=== PATIENT | female | born 1930 | race Caucasian/White ===

== ENCOUNTER 2016-04-22 13:37 | Inpatient (IN) | payer OTHER ==
[~2016-04-22] VITALS: Ht 160 cm; Wt 49.5 kg
[~2016-04-22 13:37] MED LIST: ACETAZOLAMIDE500 MG PO; ADVIL,NUPRIN,M200 MG PO; ALPHAGAN P100 DROP/2; ALPHAGAN P100 DROP/2 RIGHT EYE; ALPRAZOLAM0.25 M2 PO; ASPIR 8181 M1 PO; ASPIRIN81 M2 PO; BISACODYL5 MG PO; BROMDAY1.7 ML OP; CEPHALEXIN500 MG PO; CIPRO250 MG PO; CIPRO500 MG PO; COMPAZINE25 M1 PR; COSOPT 0.5200 DROP/1 RIGHT EYE; Colace PO; DICYCLOMINE HCL10 MG PO; DOCUSATE SODIU100 MG PO; DORZOLAMIDE-TIM10 ML; DUREZOL 0.100 DROP/5; DYAZIDE, MA1 CAPSULE PO; Durezol 0.05% Ophtha RIGHT EYE; LOVENOX40 MG/0.4 SC; MELATONIN1 MG PO; METOCLOPRAMIDE10 MG PO; METOPROLOL SUCC50 MG PO; MILK OF MAGNESI10 ML PO; ONDANSETRON ODT4 MG PO; PERCOCET 5/31 TABLET PO; POLYETHYLENE GL17 GM PO; PRILOSEC20 MG PO; THERAGRAN1 TABLET PO; TRAMADOL HCL50 MG PO; Tylenol Regular Stre PO; VIGAMOX 0.60 DROP/3 RIGHT EYE; VITAMIN B12 100MCG PO; VITAMIN D1000 UNIT PO; Vicodin,Lortab 5/500 PO; Vigamox 0.5% Ophth S RIGHT EYE; XALATAN 0.50 DROP/2. OP; Xalatan 0.005% Ophth RIGHT EYE
[2016-04-22 14:05] LABS: HEMATOCRIT 38.3 % (36.0-46.0); MCH 30.6 PG (29.0-34.0); MCHC 34.5 G/DL (30.0-36.0); MCV 88.9 FL (83-99); MEAN PLAT.VOLUME 10.6 uM^3 (9.5-12.4); PLATELET COUNT 202 K/uL (156-360); RBC DIS.WIDTH-CV 13.2 % (11.8-14.6); RBC DIS.WIDTH-SD 41.9 % (39-53); RED BLOOD COUNT 4.31 M/uL (3.80-5.20); WHITE BLOOD COUNT 11.7 K/uL (4.1-10.2)
[2016-04-22 14:14] LABS: CHLORIDE 102 mEq/L (99-109); POTASSIUM 3.9 mEq/L (3.7-5.4); SODIUM 137 mEq/L (136-147)
[2016-04-22 14:15] LABS: GLUCOSE 124 mg/dL (70-99)
[2016-04-22 14:17] LABS: ANION GAP 9 MEQ/L (2-14)
[2016-04-22 14:19] LABS: GFR ESTIMATE (CALCULATED) > 59 mL/min/
[2016-04-22 14:20] LABS: UREA NITROGEN (BUN) 24 mg/dL (9-23)
[2016-04-22 14:26] LABS: TROP-I INTERPRETATION NEGATIVE; TROPONIN-I < 0.01 ng/mL (0.0-0.30)
[2016-04-22] MEDS ORDERED: METOPROLOL SUC100 MG PO (15:28)
[2016-04-22 18:19] VITALS: BP 110/57
[2016-04-22 20:55] LABS: TROP-I INTERPRETATION NEGATIVE; TROPONIN-I < 0.01 ng/mL (0.0-0.30)
[2016-04-22 21:38] LABS: ADD MIUA? YES; BILIRUBIN NEGATIVE; BLOOD NEGATIVE; GLUCOSE (STRIP) NEGATIVE; KETONES NEGATIVE; LEUKOCYTES LARGE; NITRITE NEGATIVE; PH, URINE 8.5 (5-8); PROTEIN (STRIP) 100; SPECIFIC GRAVITY 1.018 (1.000-1.030); UROBILINOGEN 0.2 MG/DL (0.2-1.0)
[2016-04-22 21:39] LABS: COLOR DK YELLOW ((YELLOW))
[2016-04-22 21:58] LABS: EPITHELIAL CELLS NONE SEEN /HPF; MUCUS NONE SEEN /LPF; RED BLOOD CELLS 0-5 /HPF (0-5); WHITE BLOOD CELLS 40-50 /HPF (0-5)
[2016-04-22 21:59] LABS: AMORPHOUS PHOSPHATE CRYSTALS 2+; BACTERIA 3+ /HPF; CASTS NONE SEEN /LPF; CRYSTALS PRESENT; UCUL ADDED? YES
[2016-04-22 23:02] LABS: EOSINOPHIL (%) 0.1 % (0-5); HEMATOCRIT 34.5 % (36.0-46.0); IMMATURE GRANULOCYTE (%) 1.2 % (0.0-0.7); LYMPHOCYTE COUNT 2.5 K/uL (1.0-2.8); MCH 31.1 PG (29.0-34.0); MCHC 35.1 G/DL (30.0-36.0); MCV 88.7 FL (83-99); MEAN PLAT.VOLUME 10.9 uM^3 (9.5-12.4); MONOCYTE (%) 9.9 % (3-12); MONOCYTE COUNT 1.6 K/uL (0-0.8); NEUTROPHIL (%) 73.4 % (45-76); NEUTROPHIL COUNT 12.1 K/uL (1.8-6.4); PLATELET COUNT 192 K/uL (156-360); RBC DIS.WIDTH-CV 13.4 % (11.8-14.6); RBC DIS.WIDTH-SD 42.1 % (39-53); RED BLOOD COUNT 3.89 M/uL (3.80-5.20); WHITE BLOOD COUNT 16.5 K/uL (4.1-10.2)
[2016-04-23 02:00] VITALS: BP 137/55
[2016-04-23 03:02] LABS: TROP-I INTERPRETATION NEGATIVE; TROPONIN-I < 0.01 ng/mL (0.0-0.30)
[2016-04-23 05:00] VITALS: BP 123/60
[2016-04-23 06:21] LABS: HEMATOCRIT 31.6 % (36.0-46.0); MCH 30.9 PG (29.0-34.0); MCHC 34.5 G/DL (30.0-36.0); MCV 89.5 FL (83-99); MEAN PLAT.VOLUME 11.4 uM^3 (9.5-12.4); PLATELET COUNT 170 K/uL (156-360); RBC DIS.WIDTH-CV 13.7 % (11.8-14.6); RBC DIS.WIDTH-SD 45.1 % (39-53); RED BLOOD COUNT 3.53 M/uL (3.80-5.20); WHITE BLOOD COUNT 13.5 K/uL (4.1-10.2)
[2016-04-23 06:50] LABS: ANION GAP 9 MEQ/L (2-14); CHLORIDE 102 MEQ/L (99-109); GFR ESTIMATE (CALCULATED) > 59 mL/min/; GLUCOSE 112 mg/dL (70-99); POTASSIUM 3.8 MEQ/L (3.7-5.4); SAMPLE HEMOLYSIS CHECK 0; SAMPLE ICTERIC CHECK 0; SAMPLE LIPEMIA CHECK 0; SODIUM 135 MEQ/L (136-147); UREA NITROGEN (BUN) 29 mg/dL (9-23)
[2016-04-23 08:00] VITALS: BP 116/55
[2016-04-23 16:00] VITALS: BP 131/61
[2016-04-23 20:48] VITALS: BP 115/56
[2016-04-24] VITALS (30 sets, daily range): BP systolic 86–190; BP diastolic 46–96
[2016-04-24 02:33] LABS: INTER. NORMALIZED RATIO 1.2; PROTHROMBIN TIME 12.3 (9.2-11.2); PTT 37.1 (25-32)
[2016-04-24 02:41] LABS: TROP-I INTERPRETATION NEGATIVE; TROPONIN-I < 0.01 ng/mL (0.0-0.30)
[2016-04-24 09:45] LABS: EOSINOPHIL (%) 0.1 % (0-5); HEMATOCRIT 30.5 % (36.0-46.0); IMMATURE GRANULOCYTE (%) 0.4 % (0.0-0.7); LYMPHOCYTE COUNT 1.9 K/uL (1.0-2.8); MCH 30.1 PG (29.0-34.0); MCHC 33.4 G/DL (30.0-36.0); MEAN PLAT.VOLUME 11.6 uM^3 (9.5-12.4); MONOCYTE (%) 11.9 % (3-12); MONOCYTE COUNT 1.3 K/uL (0-0.8); NEUTROPHIL (%) 69.2 % (45-76); NEUTROPHIL COUNT 7.3 K/uL (1.8-6.4); PLATELET COUNT 164 K/uL (156-360); RBC DIS.WIDTH-CV 14.2 % (11.8-14.6); RBC DIS.WIDTH-SD 46.6 % (39-53); RED BLOOD COUNT 3.39 M/uL (3.80-5.20); WHITE BLOOD COUNT 10.5 K/uL (4.1-10.2)
[2016-04-24 10:01] LABS: TROP-I INTERPRETATION POSITIVE
[2016-04-24 10:02] LABS: TROPONIN-I 0.71 ng/mL (0.0-0.30)
[2016-04-24 10:11] LABS: ANION GAP 9 MEQ/L (2-14); CHLORIDE 104 MEQ/L (99-109); SAMPLE HEMOLYSIS CHECK 0; SAMPLE ICTERIC CHECK 0; SAMPLE LIPEMIA CHECK 0; SODIUM 134 MEQ/L (136-147)
[2016-04-24 10:16] LABS: GFR ESTIMATE (CALCULATED) > 59 mL/min/; GLUCOSE 107 mg/dL (70-99); UREA NITROGEN (BUN) 34 mg/dL (9-23)
[2016-04-24 13:07] LABS: METH RESISTANT S AUREUS PCR POSITIVE (NEGATIVE)
[2016-04-24 13:11] LABS: PROBE CHECK PASS
[2016-04-24 13:56] LABS: TROP-I INTERPRETATION POSITIVE
[2016-04-24 14:02] LABS: TROPONIN-I 1.01 ng/mL (0.0-0.30)
[2016-04-24 14:04] LABS: DIGOXIN 1.8 ng/mL (0.8-2.0)
[2016-04-24 20:58] LABS: BASE EXCESS -1.3 mEq/L (-3 to +3); BICARBONATE 22.2 mEq/L (22-26); METHEMOGLOBIN 0.8 % (0-1.5); PCO2 32 mm Hg (35-45); PO2 78 mm Hg (80-100); SITE LR; pH 7.45 (7.35-7.45)
[2016-04-24 20:59] LABS: COMMENTS - BLOOD GASES C+A+; DEVICE NC; O2 FLOW 2 L/MIN
[2016-04-24 21:25] LABS: HEMATOCRIT 30.6 % (36.0-46.0); MCH 30.3 PG (29.0-34.0); MCHC 33.3 G/DL (30.0-36.0); MCV 90.8 FL (83-99); MEAN PLAT.VOLUME 11.6 uM^3 (9.5-12.4); PLATELET COUNT 149 K/uL (156-360); RBC DIS.WIDTH-CV 14.1 % (11.8-14.6); RBC DIS.WIDTH-SD 46.7 % (39-53); RED BLOOD COUNT 3.37 M/uL (3.80-5.20); WHITE BLOOD COUNT 9.5 K/uL (4.1-10.2)
[2016-04-24 21:37] LABS: INTER. NORMALIZED RATIO 1.2; PROTHROMBIN TIME 11.9 (9.2-11.2)
[2016-04-24 21:40] LABS: PTT 31.8 (25-32)
[2016-04-24 21:42] LABS: ANION GAP 12 MEQ/L (2-14); CHLORIDE 104 MEQ/L (99-109); MAGNESIUM 2.1 mg/dl (1.3-2.7); SAMPLE HEMOLYSIS CHECK 0; SAMPLE ICTERIC CHECK 0; SAMPLE LIPEMIA CHECK 0; SODIUM 136 MEQ/L (136-147); TOTAL BILIRUBIN 0.7 MG/DL (0.0-1.0)
[2016-04-24 21:48] LABS: ALKALINE PHOSPHATASE 90 IU/L (3-129); GFR ESTIMATE (CALCULATED) > 59 mL/min/; GLUCOSE 100 mg/dL (70-99); UREA NITROGEN (BUN) 31 mg/dL (9-23)
[2016-04-25] VITALS (22 sets, daily range): BP systolic 111–169; BP diastolic 53–93
[2016-04-25 05:33] LABS: HEMATOCRIT 29.8 % (36.0-46.0); MCH 30.4 PG (29.0-34.0); MCHC 33.6 G/DL (30.0-36.0); MCV 90.6 FL (83-99); MEAN PLAT.VOLUME 11.5 uM^3 (9.5-12.4); PLATELET COUNT 156 K/uL (156-360); RBC DIS.WIDTH-CV 13.9 % (11.8-14.6); RBC DIS.WIDTH-SD 46.3 % (39-53); RED BLOOD COUNT 3.29 M/uL (3.80-5.20)
[2016-04-25 06:08] LABS: ANION GAP 7 MEQ/L (2-14); CHLORIDE 106 MEQ/L (99-109); GFR ESTIMATE (CALCULATED) > 59 mL/min/; GLUCOSE 91 mg/dL (70-99); POTASSIUM 3.7 MEQ/L (3.7-5.4); SAMPLE HEMOLYSIS CHECK 0; SAMPLE ICTERIC CHECK 0; SAMPLE LIPEMIA CHECK 0; SODIUM 136 MEQ/L (136-147); UREA NITROGEN (BUN) 27 mg/dL (9-23)
[2016-04-26] VITALS (24 sets, daily range): BP systolic 100–154; BP diastolic 51–102
[2016-04-26 05:42] LABS: HEMATOCRIT 27.9 % (36.0-46.0); MCH 30.5 PG (29.0-34.0); MCHC 33.7 G/DL (30.0-36.0); MCV 90.6 FL (83-99); PLATELET COUNT 173 K/uL (156-360); RBC DIS.WIDTH-CV 13.5 % (11.8-14.6); RBC DIS.WIDTH-SD 43.9 % (39-53); RED BLOOD COUNT 3.08 M/uL (3.80-5.20); WHITE BLOOD COUNT 7.4 K/uL (4.1-10.2)
[2016-04-27] VITALS (19 sets, daily range): BP systolic 120–159; BP diastolic 57–81
[2016-04-27 06:04] LABS: TROP-I INTERPRETATION POSITIVE
[2016-04-27 06:09] LABS: TROPONIN-I 0.68 ng/mL (0.0-0.30)
[2016-04-28] VITALS (13 sets, daily range): BP systolic 119–184; BP diastolic 62–86
[2016-04-28 05:57] LABS: HEMATOCRIT 25.4 % (36.0-46.0); MCH 30.1 PG (29.0-34.0); MCHC 33.5 G/DL (30.0-36.0); MCV 90.1 FL (83-99); MEAN PLAT.VOLUME 10.8 uM^3 (9.5-12.4); PLATELET COUNT 193 K/uL (156-360); RBC DIS.WIDTH-CV 14.1 % (11.8-14.6); RBC DIS.WIDTH-SD 46.5 % (39-53); RED BLOOD COUNT 2.82 M/uL (3.80-5.20)
[2016-04-29 03:20] VITALS: BP 136/69
[2016-04-29 07:18] LABS: EOSINOPHIL (%) 4.2 % (0-5); EOSINOPHIL COUNT 0.3 K/uL (0-0.3); HEMATOCRIT 24.5 % (36.0-46.0); IMMATURE GRANULOCYTE (%) 0.1 % (0.0-0.7); LYMPHOCYTE COUNT 1.3 K/uL (1.0-2.8); MCH 31.6 PG (29.0-34.0); MCHC 34.7 G/DL (30.0-36.0); MCV 91.1 FL (83-99); MONOCYTE (%) 9.4 % (3-12); MONOCYTE COUNT 0.7 K/uL (0-0.8); NEUTROPHIL (%) 67.9 % (45-76); PLATELET COUNT 214 K/uL (156-360); RBC DIS.WIDTH-CV 14.5 % (11.8-14.6); RED BLOOD COUNT 2.69 M/uL (3.80-5.20); WHITE BLOOD COUNT 7.3 K/uL (4.1-10.2)
[2016-04-29 07:52] LABS: ANION GAP 10 MEQ/L (2-14); CHLORIDE 115 MEQ/L (99-109); GFR ESTIMATE (CALCULATED) > 59 mL/min/; GLUCOSE 96 mg/dL (70-99); POTASSIUM 3.4 MEQ/L (3.7-5.4); SAMPLE HEMOLYSIS CHECK 0; SAMPLE ICTERIC CHECK 0; SAMPLE LIPEMIA CHECK 0; UREA NITROGEN (BUN) 27 mg/dL (9-23)
[2016-04-29 07:59] LABS: SODIUM 147 MEQ/L (136-147)
[2016-04-29 09:40] VITALS: BP 153/71
[2016-04-29 12:45] VITALS: BP 142/78
[2016-04-29 17:30] VITALS: BP 138/70
[2016-04-29 19:30] VITALS: BP 154/84
[2016-04-29 23:30] VITALS: BP 178/84
[2016-04-30 01:07] VITALS: BP 146/75
[2016-04-30 03:15] VITALS: BP 140/77
[2016-04-30 06:13] LABS: EOSINOPHIL (%) 4.3 % (0-5); EOSINOPHIL COUNT 0.3 K/uL (0-0.3); HEMATOCRIT 25.4 % (36.0-46.0); IMMATURE GRANULOCYTE (%) 0.1 % (0.0-0.7); LYMPHOCYTE COUNT 1.5 K/uL (1.0-2.8); MCH 30.9 PG (29.0-34.0); MCHC 34.3 G/DL (30.0-36.0); MCV 90.1 FL (83-99); MEAN PLAT.VOLUME 10.5 uM^3 (9.5-12.4); MONOCYTE (%) 8.3 % (3-12); MONOCYTE COUNT 0.6 K/uL (0-0.8); NEUTROPHIL (%) 66.7 % (45-76); NEUTROPHIL COUNT 4.8 K/uL (1.8-6.4); PLATELET COUNT 250 K/uL (156-360); RBC DIS.WIDTH-CV 14.3 % (11.8-14.6); RBC DIS.WIDTH-SD 47.2 % (39-53); RED BLOOD COUNT 2.82 M/uL (3.80-5.20); WHITE BLOOD COUNT 7.2 K/uL (4.1-10.2)
[2016-04-30 06:44] LABS: ANION GAP 8 MEQ/L (2-14); CHLORIDE 115 MEQ/L (99-109); GFR ESTIMATE (CALCULATED) > 59 mL/min/; GLUCOSE 101 mg/dL (70-99); POTASSIUM 3.4 MEQ/L (3.7-5.4); SAMPLE HEMOLYSIS CHECK 0; SAMPLE ICTERIC CHECK 0; SAMPLE LIPEMIA CHECK 0; SODIUM 145 MEQ/L (136-147); TOTAL BILIRUBIN 0.7 MG/DL (0.0-1.0); UREA NITROGEN (BUN) 28 mg/dL (9-23)
[2016-04-30 06:47] LABS: ALKALINE PHOSPHATASE 136 IU/L (3-129)
[2016-04-30 08:20] VITALS: BP 138/76
[2016-04-30 15:25] VITALS: BP 153/78
[2016-04-30 16:28] LABS: INTER. NORMALIZED RATIO 1.3; PROTHROMBIN TIME 13.8 (9.2-11.2); PTT 31.7 (25-32)
[2016-04-30 19:26] VITALS: BP 166/96
[2016-04-30 22:16] VITALS: BP 169/79
[2016-05-01 03:42] VITALS: BP 132/83
[2016-05-01 06:33] LABS: EOSINOPHIL COUNT 0.3 K/uL (0-0.3); IMMATURE GRANULOCYTE (%) 0.4 % (0.0-0.7); LYMPHOCYTE COUNT 1.6 K/uL (1.0-2.8); MCH 30.6 PG (29.0-34.0); MCHC 33.8 G/DL (30.0-36.0); MCV 90.3 FL (83-99); MEAN PLAT.VOLUME 10.7 uM^3 (9.5-12.4); MONOCYTE (%) 10.1 % (3-12); MONOCYTE COUNT 0.7 K/uL (0-0.8); NEUTROPHIL (%) 60.2 % (45-76); NEUTROPHIL COUNT 4.1 K/uL (1.8-6.4); PLATELET COUNT 283 K/uL (156-360); RBC DIS.WIDTH-CV 14.4 % (11.8-14.6); RBC DIS.WIDTH-SD 47.7 % (39-53); RED BLOOD COUNT 2.88 M/uL (3.80-5.20); WHITE BLOOD COUNT 6.8 K/uL (4.1-10.2)
[2016-05-01 07:02] LABS: ANION GAP 10 MEQ/L (2-14); CHLORIDE 113 MEQ/L (99-109); GFR ESTIMATE (CALCULATED) > 59 mL/min/; GLUCOSE 93 mg/dL (70-99); POTASSIUM 3.8 MEQ/L (3.7-5.4); SAMPLE HEMOLYSIS CHECK 0; SAMPLE ICTERIC CHECK 0; SAMPLE LIPEMIA CHECK 0; SODIUM 147 MEQ/L (136-147); UREA NITROGEN (BUN) 29 mg/dL (9-23)
[2016-05-01 08:42] VITALS: BP 156/81
[2016-05-01 12:16] VITALS: BP 166/80
[2016-05-01 14:50] LABS: TYPE OF FLUID PLEURAL
[2016-05-01 15:06] VITALS: BP 154/79
[2016-05-01 15:57] LABS: BODY FLUID RBC'S 16 /MM^3 (0-100); RED CELL AREA COUNTED 18; RED CELL DILUTION 1; WBC AREA COUNTED 18; WBC DILUTION 1
[2016-05-01 15:58] LABS: BODY FLUID WBC'S 220 /MM^3 (0-500); WHITE CELL RAW COUNT 396
[2016-05-01 16:00] LABS: BODY FLUID EOSINOPHILS 0 % (0-25); MONO RAW COUNT 77; MONONUCLEAR WBC'S 77 %; POLY RAW COUNT 23; POLYNUCLEAR WBC'S 23 % (0-25)
[2016-05-01 16:26] LABS: BODY FLUID LDH 210 IU/L; BODY FLUID PROTEIN 2.2 G/DL
[2016-05-01 20:00] VITALS: BP 120/69
[2016-05-01 23:06] VITALS: BP 147/77
[2016-05-02 03:56] VITALS: BP 152/83
[2016-05-02 06:53] LABS: EOSINOPHIL COUNT 0.3 K/uL (0-0.3); HEMATOCRIT 25.7 % (36.0-46.0); IMMATURE GRANULOCYTE (%) 0.6 % (0.0-0.7); LYMPHOCYTE COUNT 1.6 K/uL (1.0-2.8); MCH 30.2 PG (29.0-34.0); MCHC 33.1 G/DL (30.0-36.0); MCV 91.5 FL (83-99); MEAN PLAT.VOLUME 10.9 uM^3 (9.5-12.4); MONOCYTE (%) 8.9 % (3-12); MONOCYTE COUNT 0.6 K/uL (0-0.8); NEUTROPHIL (%) 62.4 % (45-76); NEUTROPHIL COUNT 4.3 K/uL (1.8-6.4); PLATELET COUNT 274 K/uL (156-360); RBC DIS.WIDTH-CV 14.3 % (11.8-14.6); RBC DIS.WIDTH-SD 47.7 % (39-53); RED BLOOD COUNT 2.81 M/uL (3.80-5.20); WHITE BLOOD COUNT 6.8 K/uL (4.1-10.2)
[2016-05-02 07:08] LABS: ANION GAP 6 MEQ/L (2-14); CHLORIDE 112 MEQ/L (99-109); GFR ESTIMATE (CALCULATED) > 59 mL/min/; GLUCOSE 95 mg/dL (70-99); POTASSIUM 3.5 MEQ/L (3.7-5.4); SAMPLE HEMOLYSIS CHECK 0; SAMPLE ICTERIC CHECK 0; SAMPLE LIPEMIA CHECK 0; SODIUM 145 MEQ/L (136-147); UREA NITROGEN (BUN) 31 mg/dL (9-23)
[2016-05-02 09:17] VITALS: BP 129/65
[2016-05-02 11:44] VITALS: BP 145/79
[2016-05-02] MEDS ORDERED: IBUPROFEN400 MG PO (11:52)
[2016-05-02] MEDS ORDERED: ASPIR-LOW81 MG PO (11:52)
[2016-05-02] MEDS ORDERED: XARELTO15 MG PO (11:52)
[2016-05-02] MEDS ORDERED: TYLENOL REGULA325 MG PO (11:53)
[2016-05-02] MEDS ORDERED: COLCRYS0.6 MG PO (11:54)
[2016-05-02] MEDS ORDERED: OMEPRAZOLE20 MG PO (11:55)
== END 2016-05-02 12:48 | disposition home or self-care (01) | DRG 280 ==
LOC: EME 13:37 → 5WEST 15:16 → EDOF 15:16 → 5WEST 16:49 → 4WEST 04-23 10:12 → 5WEST 04-23 10:12 → 4EAST 04-24 02:09 → 4WEST 04-24 11:45 → 4EAST 04-24 11:45 → 4WEST 04-27 06:41 → 4EAST 04-28 10:00
PROVIDERS: Hospitalist; Internal Medicine; Internal Medicine Cardiovascular Disease; Internal Medicine Critical Care Medicine; Internal Medicine Pulmonary Disease; Obstetrics & Gynecology; Physician Assistant; Physician Assistant Medical; Radiology Diagnostic Radiology; Student in an Organized Health Care Education/Training Program
PROC: B2111ZZ Fluoroscopy of Multiple Coronary Arteries using Low Osmolar Contrast (ICD-10-PCS; principal; 2016-04-24)
PROC: 5A1223Z Performance of Cardiac Pacing, Continuous (ICD-10-PCS; principal; 2016-04-24)
PROC: 4A023N7 Measurement of Cardiac Sampling and Pressure, Left Heart, Percutaneous Approach (ICD-10-PCS; principal; 2016-04-24)
PROC: B2151ZZ Fluoroscopy of Left Heart using Low Osmolar Contrast (ICD-10-PCS; principal; 2016-04-24)
PROC: 0W9B3ZZ Drainage of Left Pleural Cavity, Percutaneous Approach (ICD-10-PCS; 2016-05-01)
DX: I21.3 ST elevation (STEMI) myocardial infarction of unspecified site (principal); G93.41 Metabolic encephalopathy; D68.9 Coagulation defect, unspecified; I31.3 Pericardial effusion (noninflammatory); N39.0 Urinary tract infection, site not specified; I49.5 Sick sinus syndrome; I48.91 Unspecified atrial fibrillation; R07.9 Chest pain, unspecified; D72.829 Elevated white blood cell count, unspecified; I10 Essential (primary) hypertension; R41.82 Altered mental status, unspecified; R94.31 Abnormal electrocardiogram [ECG] [EKG]; I45.5 Other specified heart block; I25.10 Atherosclerotic heart disease of native coronary artery without angina pectoris; B96.4 Proteus (mirabilis) (morganii) as the cause of diseases classified elsewhere; R25.1 Tremor, unspecified
CPT/HCPCS: 36600; 70450; 71010; 71020; 80048; 80053; 80162; 81003; 82803; 82945; 83605; 83615 91; 83735; 83880; 84100; 84157; 84439; 84443; 84484; 85025; 85027; 85347; 85610; 85730; 87040; 87070; 87077; 87086; 87186; 87205; 87641; 88108; 88305; 89051; 92610 GN; 93005; 93306; 93308; 94760; 94799; 99281; 99284; C1769; C1887; C1894; G0378; J0461; J0696; J1160; J1644; J2250; J3010; J7030; J7040; J7050; J7120

== ENCOUNTER 2016-05-08 13:45 | Inpatient (IN) | payer OTHER, MEDICARE ==
[~2016-05-08] VITALS: Ht 160 cm; Wt 66.5 kg
[~2016-05-08 13:45] MED LIST changes: +ASPIR-LOW81 MG PO; +COLCRYS0.6 MG PO; +IBUPROFEN400 MG PO; +METOPROLOL SUC100 MG PO; +OMEPRAZOLE20 MG PO; +TYLENOL REGULA325 MG PO; +XARELTO15 MG PO
[2016-05-08 14:40] LABS: INTER. NORMALIZED RATIO 1.4; PROTHROMBIN TIME 13.9 (9.2-11.2); PTT 33.6 (25-32)
[2016-05-08 14:41] LABS: HEMATOCRIT 28.2 % (36.0-46.0); MCH 29.5 PG (29.0-34.0); MCV 89.5 FL (83-99); MEAN PLAT.VOLUME 10.6 uM^3 (9.5-12.4); PLATELET COUNT 367 K/uL (156-360); RBC DIS.WIDTH-CV 14.4 % (11.8-14.6); RBC DIS.WIDTH-SD 45.7 % (39-53); RED BLOOD COUNT 3.15 M/uL (3.80-5.20)
[2016-05-08 14:42] LABS: WHITE BLOOD COUNT 14.5 K/uL (4.1-10.2)
[2016-05-08 14:58] LABS: TROP-I INTERPRETATION NEGATIVE; TROPONIN-I 0.02 ng/mL (0.0-0.30)
[2016-05-08 15:06] LABS: CHLORIDE 107 mEq/L (99-109); POTASSIUM 4.8 mEq/L (3.7-5.4); SODIUM 138 mEq/L (136-147)
[2016-05-08 15:08] LABS: GLUCOSE 119 mg/dL (70-99)
[2016-05-08 15:09] LABS: ANION GAP 11 MEQ/L (2-14)
[2016-05-08 15:10] LABS: TOTAL BILIRUBIN 0.8 mg/dL (0.0-1.0)
[2016-05-08 15:11] LABS: ALKALINE PHOSPHATASE 160 IU/L (3-129)
[2016-05-08 15:12] LABS: GFR ESTIMATE (CALCULATED) > 59 mL/min/
[2016-05-08 15:13] LABS: UREA NITROGEN (BUN) 23 mg/dL (9-23)
[2016-05-08 15:15] LABS: CREATINE KINASE 40 IU/L (1-294); TOTAL CK 40 IU/L (1-294)
[2016-05-08 15:20] LABS: CK-MB 1.1 ng/mL (0.0-4.9)
[2016-05-08 16:36] LABS: ADD MIUA? YES; BILIRUBIN NEGATIVE; BLOOD NEGATIVE; COLOR YELLOW ((YELLOW)); GLUCOSE (STRIP) NEGATIVE; KETONES NEGATIVE; LEUKOCYTES TRACE; NITRITE NEGATIVE; PROTEIN (STRIP) NEGATIVE; UROBILINOGEN 0.2 MG/DL (0.2-1.0)
[2016-05-08] MEDS ORDERED: LO-DOSE ASPIRIN81 M2 PO (16:42)
[2016-05-08] MEDS ORDERED: TRAMADOL HCL50 MG PO (16:43)
[2016-05-08] MEDS ORDERED: OMEPRAZOLE20 MG PO (16:43)
[2016-05-08] MEDS ORDERED: IBUPROFEN400 MG PO (16:43)
[2016-05-08] MEDS ORDERED: COLCRYS0.6 MG PO (16:43)
[2016-05-08] MEDS ORDERED: ONE-A-DAY ESSE1 EAC1 PO (16:44)
[2016-05-08] MEDS ORDERED: VITAMIN D31000 UNI2 PO (16:44)
[2016-05-08] MEDS ORDERED: CYANOCOBALAM1000 MCG PO (16:44)
[2016-05-08 16:46] LABS: BACTERIA NONE SEEN /HPF; EPITHELIAL CELLS RARE /HPF; HYALINE CASTS 0-5 /LPF; MUCUS TRACE /LPF; RED BLOOD CELLS 0-5 /HPF (0-5); UCUL ADDED? NO; WHITE BLOOD CELLS 0-5 /HPF (0-5)
[2016-05-08 16:52] LABS: MAGNESIUM 2.1 mg/dL (1.3-2.7)
[2016-05-08 17:32] LABS: DIGOXIN < 0.3 ng/mL (0.8-2.0)
[2016-05-08 17:43] VITALS: BP 167/77
[2016-05-08 18:30] VITALS: BP 152/65
[2016-05-08 20:00] VITALS: BP 150/79
[2016-05-08 20:04] LABS: METH RESISTANT S AUREUS PCR POSITIVE (NEGATIVE)
[2016-05-08 20:15] LABS: PROBE CHECK PASS
[2016-05-08 21:00] VITALS: BP 137/63
[2016-05-08 21:36] LABS: HEMATOCRIT 25.8 % (36.0-46.0); MCV 89.3 FL (83-99)
[2016-05-08 22:00] VITALS: BP 153/55
[2016-05-08 22:09] LABS: TROP-I INTERPRETATION NEGATIVE; TROPONIN-I 0.03 ng/mL (0.0-0.30)
[2016-05-08 23:00] VITALS: BP 148/63
[2016-05-09] VITALS (17 sets, daily range): BP systolic 87–182; BP diastolic 50–98
[2016-05-09 03:00] LABS: TROP-I INTERPRETATION NEGATIVE; TROPONIN-I 0.03 ng/mL (0.0-0.30)
[2016-05-09 06:20] LABS: ALKALINE PHOSPHATASE 132 IU/L (3-129); ANION GAP 8 MEQ/L (2-14); CHLORIDE 108 MEQ/L (99-109); GFR ESTIMATE (CALCULATED) > 59 mL/min/; GLUCOSE 91 mg/dL (70-99); POTASSIUM 3.9 MEQ/L (3.7-5.4); SAMPLE HEMOLYSIS CHECK 0; SAMPLE ICTERIC CHECK 0; SAMPLE LIPEMIA CHECK 0; SODIUM 139 MEQ/L (136-147); TOTAL BILIRUBIN 0.8 MG/DL (0.0-1.0); UREA NITROGEN (BUN) 20 mg/dL (9-23)
[2016-05-09 06:42] LABS: HEMATOCRIT 22.5 % (36.0-46.0); MCH 29.5 PG (29.0-34.0); MCHC 33.3 G/DL (30.0-36.0); MCV 88.6 FL (83-99); MEAN PLAT.VOLUME 10.8 uM^3 (9.5-12.4); PLATELET COUNT 300 K/uL (156-360); RBC DIS.WIDTH-CV 14.6 % (11.8-14.6); RBC DIS.WIDTH-SD 47.3 % (39-53); RED BLOOD COUNT 2.54 M/uL (3.80-5.20)
[2016-05-09 06:46] LABS: WHITE BLOOD COUNT 7.9 K/uL (4.1-10.2)
[2016-05-10] VITALS (10 sets, daily range): BP systolic 107–155; BP diastolic 51–80
[2016-05-10 07:09] LABS: EOSINOPHIL (%) 1.4 % (0-5); EOSINOPHIL COUNT 0.1 K/uL (0-0.3); HEMATOCRIT 33.3 % (36.0-46.0); IMMATURE GRANULOCYTE (%) 0.6 % (0.0-0.7); IMMATURE GRANULOCYTE COUNT 0.1 K/uL; LYMPHOCYTE COUNT 1.6 K/uL (1.0-2.8); MCHC 34.5 G/DL (30.0-36.0); MCV 86.9 FL (83-99); MEAN PLAT.VOLUME 10.9 uM^3 (9.5-12.4); MONOCYTE (%) 9.3 % (3-12); MONOCYTE COUNT 0.9 K/uL (0-0.8); NEUTROPHIL (%) 72.5 % (45-76); NEUTROPHIL COUNT 7.1 K/uL (1.8-6.4); PLATELET COUNT 308 K/uL (156-360); RBC DIS.WIDTH-CV 14.8 % (11.8-14.6); RBC DIS.WIDTH-SD 45.5 % (39-53); RED BLOOD COUNT 3.83 M/uL (3.80-5.20); WHITE BLOOD COUNT 9.8 K/uL (4.1-10.2)
[2016-05-10 07:38] LABS: ANION GAP 13 MEQ/L (2-14); CHLORIDE 106 MEQ/L (99-109); GFR ESTIMATE (CALCULATED) > 59 mL/min/; GLUCOSE 106 mg/dL (70-99); MAGNESIUM 1.6 mg/dl (1.3-2.7); POTASSIUM 3.6 MEQ/L (3.7-5.4); SAMPLE HEMOLYSIS CHECK 0; SAMPLE ICTERIC CHECK 0; SAMPLE LIPEMIA CHECK 0; SODIUM 141 MEQ/L (136-147); UREA NITROGEN (BUN) 16 mg/dL (9-23)
[2016-05-10 09:35] LABS: TYPE OF FLUID THORACENTESIS
[2016-05-10 10:30] LABS: BODY FLUID EOSINOPHILS 0 % (0-25); MONO RAW COUNT 66; MONONUCLEAR WBC'S 66 %; POLY RAW COUNT 34; POLYNUCLEAR WBC'S 34 % (0-25)
[2016-05-10 10:46] LABS: BODY FLUID RBC'S 2450 /MM^3 (0-100); BODY FLUID WBC'S 234 /MM^3 (0-500); RED CELL AREA COUNTED 0.4; RED CELL DILUTION 1; WBC AREA COUNTED 8; WBC DILUTION 1; WHITE CELL RAW COUNT 187
[2016-05-10 13:55] LABS: BODY FLUID LDH 142 IU/L; BODY FLUID PROTEIN < 3.0 G/DL
[2016-05-11 03:10] VITALS: BP 125/73
[2016-05-11 06:29] LABS: EOSINOPHIL (%) 1.8 % (0-5); EOSINOPHIL COUNT 0.2 K/uL (0-0.3); HEMATOCRIT 30.1 % (36.0-46.0); IMMATURE GRANULOCYTE (%) 0.6 % (0.0-0.7); IMMATURE GRANULOCYTE COUNT 0.1 K/uL; LYMPHOCYTE COUNT 1.6 K/uL (1.0-2.8); MCH 29.5 PG (29.0-34.0); MCHC 33.6 G/DL (30.0-36.0); MEAN PLAT.VOLUME 10.5 uM^3 (9.5-12.4); MONOCYTE (%) 8.8 % (3-12); MONOCYTE COUNT 0.8 K/uL (0-0.8); NEUTROPHIL (%) 70.6 % (45-76); NEUTROPHIL COUNT 6.4 K/uL (1.8-6.4); PLATELET COUNT 306 K/uL (156-360); RBC DIS.WIDTH-CV 14.8 % (11.8-14.6); RBC DIS.WIDTH-SD 47.7 % (39-53); RED BLOOD COUNT 3.42 M/uL (3.80-5.20)
[2016-05-11 07:23] LABS: ANION GAP 11 MEQ/L (2-14); CHLORIDE 108 MEQ/L (99-109); GFR ESTIMATE (CALCULATED) > 59 mL/min/; GLUCOSE 101 mg/dL (70-99); POTASSIUM 3.9 MEQ/L (3.7-5.4); SAMPLE HEMOLYSIS CHECK 0; SAMPLE ICTERIC CHECK 0; SAMPLE LIPEMIA CHECK 0; SODIUM 143 MEQ/L (136-147); UREA NITROGEN (BUN) 19 mg/dL (9-23)
[2016-05-11 08:00] VITALS: BP 118/57
[2016-05-11 12:50] VITALS: BP 141/68
[2016-05-11 13:05] LABS: TYPE OF FLUID PLEURAL
[2016-05-11 13:19] LABS: BODY FLUID RBC'S < 1000 /MM^3 (0-100); BODY FLUID WBC'S 350 /MM^3 (0-500)
[2016-05-11 13:48] LABS: BODY FLUID EOSINOPHILS 0 % (0-25); MONO RAW COUNT 80; MONONUCLEAR WBC'S 40 %; POLY RAW COUNT 120; POLYNUCLEAR WBC'S 60 % (0-25)
[2016-05-11 13:53] LABS: BODY FLUID LDH 116 IU/L; BODY FLUID PROTEIN < 3.0 G/DL
[2016-05-11 15:40] VITALS: BP 129/67
[2016-05-11 19:30] VITALS: BP 115/62
[2016-05-11 23:00] VITALS: BP 132/68
[2016-05-12 03:00] VITALS: BP 116/59
[2016-05-12 07:35] LABS: EOSINOPHIL (%) 3.9 % (0-5); EOSINOPHIL COUNT 0.3 K/uL (0-0.3); HEMATOCRIT 31.9 % (36.0-46.0); IMMATURE GRANULOCYTE (%) 0.4 % (0.0-0.7); LYMPHOCYTE COUNT 1.1 K/uL (1.0-2.8); MCH 28.3 PG (29.0-34.0); MCV 88.4 FL (83-99); MEAN PLAT.VOLUME 10.4 uM^3 (9.5-12.4); MONOCYTE (%) 10.1 % (3-12); MONOCYTE COUNT 0.8 K/uL (0-0.8); NEUTROPHIL COUNT 5.7 K/uL (1.8-6.4); PLATELET COUNT 311 K/uL (156-360); RBC DIS.WIDTH-CV 14.6 % (11.8-14.6); RBC DIS.WIDTH-SD 47.3 % (39-53); RED BLOOD COUNT 3.61 M/uL (3.80-5.20); WHITE BLOOD COUNT 7.9 K/uL (4.1-10.2)
[2016-05-12 08:00] VITALS: BP 121/60
[2016-05-12 08:04] LABS: ANION GAP 8 MEQ/L (2-14); CHLORIDE 105 MEQ/L (99-109); GFR ESTIMATE (CALCULATED) > 59 mL/min/; GLUCOSE 96 mg/dL (70-99); POTASSIUM 3.8 MEQ/L (3.7-5.4); SAMPLE HEMOLYSIS CHECK 0; SAMPLE ICTERIC CHECK 0; SAMPLE LIPEMIA CHECK 0; SODIUM 141 MEQ/L (136-147); UREA NITROGEN (BUN) 19 mg/dL (9-23)
[2016-05-12 12:39] VITALS: BP 106/55
[2016-05-12] MEDS ORDERED: LORAZEPAM0.5 MG PO (14:12)
[2016-05-12] MEDS ORDERED: MORPHINE CON20 MG/M1 PO (14:12)
[2016-05-12] MEDS ORDERED: HYOSCYAMINE0.125 M2 PO (14:12)
== END 2016-05-12 16:10 | disposition hospice, home (50) | DRG 189 ==
LOC: EME 13:45 → EDOF 16:12 → 4EAST 16:12 → 4WEST 16:12 → EDOF 16:12 → 4EAST 17:36 → 4WEST 18:16 → 4EAST 05-09 12:03
PROVIDERS: Emergency Medicine; Internal Medicine; Internal Medicine Pulmonary Disease; Nurse Practitioner Family; Radiology Diagnostic Radiology
PROC: 30233N1 Transfusion of Nonautologous Red Blood Cells into Peripheral Vein, Percutaneous Approach (ICD-10-PCS; principal; 2016-05-09)
PROC: 0W993ZZ Drainage of Right Pleural Cavity, Percutaneous Approach (ICD-10-PCS; 2016-05-10)
PROC: 0W9B0ZZ Drainage of Left Pleural Cavity, Open Approach (ICD-10-PCS; 2016-05-11)
DX: J96.01 Acute respiratory failure with hypoxia (principal); J18.9 Pneumonia, unspecified organism; I50.33 Acute on chronic diastolic (congestive) heart failure; G93.41 Metabolic encephalopathy; J90 Pleural effusion, not elsewhere classified; I30.9 Acute pericarditis, unspecified; J98.19 Other pulmonary collapse; D64.9 Anemia, unspecified; E87.6 Hypokalemia; I48.2 Chronic atrial fibrillation; I25.10 Atherosclerotic heart disease of native coronary artery without angina pectoris; M48.00 Spinal stenosis, site unspecified; I11.0 Hypertensive heart disease with heart failure; R33.9 Retention of urine, unspecified; K31.9 Disease of stomach and duodenum, unspecified; T39.395A Adverse effect of other nonsteroidal anti-inflammatory drugs [NSAID], initial encounter; K59.00 Constipation, unspecified; R25.1 Tremor, unspecified; Z66 Do not resuscitate; Z51.5 Encounter for palliative care; Z79.82 Long term (current) use of aspirin; Z79.01 Long term (current) use of anticoagulants
CPT/HCPCS: 36415; 36600; 71010; 71020; 71250; 80048; 80053; 80069; 80162; 80202; 81003; 82272; 82550; 82553; 82803; 82945; 83605; 83615 91; 83735; 84157; 84443; 84484; 85014; 85018; 85025; 85027; 85610; 85730; 86850; 86900; 86901; 86920; 87040; 87070; 87075; 87086; 87205; 87641; 88108; 88305; 89051; 93005; 93308; 93970; 94799; C9113; J1160; J1940; J2270; J2543; J3370; J7030; J7050; P9016

== ENCOUNTER 2017-04-13 14:54 | Observation (INO) | payer OTHER, MEDICARE ==
[~2017-04-13] VITALS: Ht 160 cm; Wt 56.1 kg
[~2017-04-13 14:54] MED LIST changes: +CYANOCOBALAM1000 MCG PO; +HYOSCYAMINE0.125 M2 PO; +LO-DOSE ASPIRIN81 M2 PO; +LORAZEPAM0.5 MG PO; +MORPHINE CON20 MG/M1 PO; +ONE-A-DAY ESSE1 EAC1 PO; +VITAMIN D31000 UNI2 PO
[2017-04-13 15:33] LABS: HEMATOCRIT 37.3 % (36.0-46.0); HEMOGLOBIN 12.7 G/DL (11.9-15.5); MCH 30.8 PG (29.0-34.0); MCV 90.5 FL (83-99); PLATELET COUNT 174 K/uL (156-360); RBC DIS.WIDTH-CV 13.7 % (11.8-14.6); RBC DIS.WIDTH-SD 45.4 % (39-53); RED BLOOD COUNT 4.12 M/uL (3.80-5.20); WHITE BLOOD COUNT 11.8 K/uL (4.1-10.2)
[2017-04-13 15:45] LABS: ALBUMIN 3.1 g/dL (3.2-4.8); CHLORIDE 105 mEq/L (99-109); POTASSIUM 2.9 mEq/L (3.7-5.4); SODIUM 137 mEq/L (136-147)
[2017-04-13 15:47] LABS: GLUCOSE 112 mg/dL (70-99)
[2017-04-13 15:48] LABS: TOTAL PROTEIN 5.7 g/dL (6.4-8.3)
[2017-04-13 15:51] LABS: ALKALINE PHOSPHATASE 106 IU/L (3-129); CREATININE 0.7 mg/dL (0.6-1.3); GFR ESTIMATE (CALCULATED) > 59 mL/min/
[2017-04-13 15:52] LABS: UREA NITROGEN (BUN) 31 mg/dL (9-23)
[2017-04-13 15:53] LABS: AST (GOT) 14 IU/L (2-34)
[2017-04-13 15:54] LABS: ALT (GPT) 26 IU/L (3-49); LIPASE 3 U/L (1.0-51.0)
[2017-04-13 16:06] LABS: ABS NEUTROPHIL COUNT 8.2; ANISOCYTOSIS 1+; ATYPICAL LYMPHOCYTE 7.1 %; BAND NEUTROPHILS 18.6 % (0-8.0); EOSINOPHIL ABS CT 0.1; EOSINOPHILS 0.9 % (0-5.0); LYMPHOCYTES 11.5 % (15.0-45.0); MICROCYTOSIS 1+; MONOCYTES 10.6 % (0-9.0); SEG.NEUTROPHILS 51.3 % (46.0-76.0)
[2017-04-13 17:06] LABS: APPEARANCE CLOUDY ((CLEAR)); BILIRUBIN NEGATIVE; BLOOD NEGATIVE; COLOR AMBER ((YELLOW)); GLUCOSE (STRIP) NEGATIVE; KETONES NEGATIVE; LEUKOCYTES TRACE; NITRITE NEGATIVE; PROTEIN (STRIP) 30; SPECIFIC GRAVITY 1.018 (1.000-1.030); UROBILINOGEN 0.2 MG/DL (0.2-1.0)
[2017-04-13] MEDS ORDERED: TRAMADOL HCL50 MG PO (17:28)
[2017-04-13] MEDS ORDERED: ATIVAN0.5 MG PO (17:28)
[2017-04-13] MEDS ORDERED: COLACE100 MG PO (17:29)
[2017-04-13] MEDS ORDERED: MELATIN3 MG PO (17:29)
[2017-04-13] MEDS ORDERED: PAXIL10 MG PO (17:29)
[2017-04-13] MEDS ORDERED: COLCRYS0.6 MG PO (17:29)
[2017-04-13] MEDS ORDERED: LASIX20 MG PO (17:29)
[2017-04-13 17:30] LABS: BACTERIA 2+ /HPF; EPITHELIAL CELLS 3+ /HPF; MUCUS NONE SEEN /LPF; RED BLOOD CELLS 0-5 /HPF (0-5); UCUL ADDED? YES; WHITE BLOOD CELLS 0-5 /HPF (0-5)
[2017-04-13] MEDS ORDERED: CRANBERRY400 MG PO (17:30)
[2017-04-13] MEDS ORDERED: PRILOSEC OTC20 MG PO (17:30)
[2017-04-13] MEDS ORDERED: POTASSIUM CHLO20 ME1 PO (17:30)
[2017-04-13] MEDS ORDERED: TRAVATAN Z5 ML BOTH EYES (17:30)
[2017-04-13 21:34] VITALS: BP 165/71
[2017-04-13 23:24] VITALS: BP 153/68
[2017-04-14 04:09] VITALS: BP 147/68
[2017-04-14 06:04] LABS: BASOPHIL (%) 0.2 % (0-1); EOSINOPHIL (%) 0.7 % (0-5); EOSINOPHIL COUNT 0.1 K/uL (0-0.3); HEMATOCRIT 34.3 % (36.0-46.0); HEMOGLOBIN 11.6 G/DL (11.9-15.5); IMMATURE GRANULOCYTE (%) 0.9 % (0.0-0.7); LYMPHOCYTE (%) 24.6 % (15-42); MCH 30.9 PG (29.0-34.0); MCHC 33.8 G/DL (30.0-36.0); MCV 91.5 FL (83-99); MONOCYTE (%) 11.1 % (3-12); MONOCYTE COUNT 0.9 K/uL (0-0.8); NEUTROPHIL (%) 62.5 % (45-76); NEUTROPHIL COUNT 5.1 K/uL (1.8-6.4); PLATELET COUNT 170 K/uL (156-360); RBC DIS.WIDTH-CV 13.8 % (11.8-14.6); RBC DIS.WIDTH-SD 46.6 % (39-53); RED BLOOD COUNT 3.75 M/uL (3.80-5.20); WHITE BLOOD COUNT 8.1 K/uL (4.1-10.2)
[2017-04-14 06:24] LABS: CHLORIDE 107 MEQ/L (99-109); CREATININE 0.6 MG/DL (0.6-1.3); GFR ESTIMATE (CALCULATED) > 59 mL/min/; GLUCOSE 90 mg/dL (70-99); SODIUM 139 MEQ/L (136-147); UREA NITROGEN (BUN) 29 mg/dL (9-23)
[2017-04-14 06:25] LABS: POTASSIUM 3.5 MEQ/L (3.7-5.4)
[2017-04-14 07:54] VITALS: BP 174/74
[2017-04-14 12:08] VITALS: BP 168/72
[2017-04-14] MEDS ORDERED: AMOX TR-K CLV1 EAC4 PO (15:46)
[2017-04-14] MEDS ORDERED: POLYETHYLENE GL17 GM PO (16:02)
[2017-04-14 16:13] VITALS: BP 158/72
[2017-04-14 19:30] VITALS: BP 164/75
[2017-04-15 00:05] VITALS: BP 151/70
[2017-04-15 04:09] VITALS: BP 160/72
[2017-04-15 06:17] LABS: CHLORIDE 105 MEQ/L (99-109); CREATININE 0.6 MG/DL (0.6-1.3); GFR ESTIMATE (CALCULATED) > 59 mL/min/; GLUCOSE 103 mg/dL (70-99); MAGNESIUM 1.8 mg/dl (1.3-2.7); POTASSIUM 3.8 MEQ/L (3.7-5.4); SODIUM 139 MEQ/L (136-147); UREA NITROGEN (BUN) 23 mg/dL (9-23)
[2017-04-15 07:05] VITALS: BP 195/86
[2017-04-15 12:40] VITALS: BP 177/81
== END 2017-04-15 14:09 | disposition home or self-care (01) ==
LOC: EME 14:54 → EDOF 18:20 → 5WEST 18:20 → EDOF 18:20 → ENRESERV 18:28 → 5WEST 21:21
PROVIDERS: Emergency Medicine; Hospitalist
DX: E87.6 Hypokalemia (principal); K52.89 Other specified noninfective gastroenteritis and colitis; K56.41 Fecal impaction; E86.0 Dehydration; I25.10 Atherosclerotic heart disease of native coronary artery without angina pectoris; I10 Essential (primary) hypertension; K21.9 Gastro-esophageal reflux disease without esophagitis; M48.00 Spinal stenosis, site unspecified; G89.29 Other chronic pain; M54.9 Dorsalgia, unspecified; Z86.19 Personal history of other infectious and parasitic diseases; I48.91 Unspecified atrial fibrillation; E88.09 Other disorders of plasma-protein metabolism, not elsewhere classified; D64.9 Anemia, unspecified; R09.02 Hypoxemia
CPT/HCPCS: 71045; 74177; 80048; 80053; 81003; 83605; 83690; 83735; 85025; 87077; 87086; 87186; 87502; 87641; 93005; G0378; G8987 GO CN; G8988 GO CL; J1644; J2405; J3480; J7030

== ENCOUNTER 2017-07-03 18:13 | Emergency (ER) | payer OTHER, MEDICARE ==
[~2017-07-03] VITALS: Ht 149.9 cm; Wt 63.8 kg
[~2017-07-03 18:13] MED LIST changes: +AMOX TR-K CLV1 EAC4 PO; +ATIVAN0.5 MG PO; +COLACE100 MG PO; +CRANBERRY400 MG PO; +LASIX20 MG PO; +MELATIN3 MG PO; +PAXIL10 MG PO; +POTASSIUM CHLO20 ME1 PO; +PRILOSEC OTC20 MG PO; +TRAVATAN Z5 ML BOTH EYES
[2017-07-03 19:13] LABS: BASOPHIL (%) 0.5 % (0-1); EOSINOPHIL (%) 0.6 % (0-5); HEMATOCRIT 36.5 % (36.0-46.0); HEMOGLOBIN 12.6 G/DL (11.9-15.5); IMMATURE GRANULOCYTE (%) 0.2 % (0.0-0.7); LYMPHOCYTE (%) 33.9 % (15-42); LYMPHOCYTE COUNT 2.2 K/uL (1.0-2.8); MCH 31.2 PG (29.0-34.0); MCHC 34.5 G/DL (30.0-36.0); MCV 90.3 FL (83-99); MONOCYTE (%) 5.7 % (3-12); MONOCYTE COUNT 0.4 K/uL (0-0.8); NEUTROPHIL (%) 59.1 % (45-76); NEUTROPHIL COUNT 3.8 K/uL (1.8-6.4); PLATELET COUNT 186 K/uL (156-360); RBC DIS.WIDTH-SD 46.5 % (39-53); RED BLOOD COUNT 4.04 M/uL (3.80-5.20); WHITE BLOOD COUNT 6.5 K/uL (4.1-10.2)
[2017-07-03 19:22] LABS: CHLORIDE 101 mEq/L (99-109); PTT 29.8 SEC (25-37)
[2017-07-03 19:23] LABS: SODIUM 139 mEq/L (136-147)
[2017-07-03 19:24] LABS: GLUCOSE 122 mg/dL (70-99)
[2017-07-03 19:28] LABS: CREATININE 0.8 mg/dL (0.6-1.3); GFR ESTIMATE (CALCULATED) > 59 mL/min/
[2017-07-03 19:29] LABS: UREA NITROGEN (BUN) 25 mg/dL (9-23)
[2017-07-03 19:35] LABS: TROP-I INTERPRETATION NEGATIVE; TROPONIN-I < 0.01 ng/mL (0.0-0.30)
[2017-07-03 19:53] LABS: APPEARANCE CLOUDY ((CLEAR)); BILIRUBIN NEGATIVE; BLOOD NEGATIVE; COLOR YELLOW ((YELLOW)); GLUCOSE (STRIP) NEGATIVE; KETONES NEGATIVE; LEUKOCYTES LARGE; NITRITE POSITIVE; PROTEIN (STRIP) NEGATIVE; UROBILINOGEN 0.2 MG/DL (0.2-1.0)
[2017-07-03 20:07] LABS: EPITHELIAL CELLS 2+ /HPF; RED BLOOD CELLS 0-5 /HPF (0-5); UCUL ADDED? YES; WHITE BLOOD CELLS TNTC /HPF (0-5)
[2017-07-03 20:09] LABS: BACTERIA 4+ /HPF; MUCUS 2+ /LPF
[2017-07-03] MEDS ORDERED: LEVAQUIN750 MG PO (21:04)
[2017-07-03 21:51] VITALS: BP 192/74
[2017-07-04] MEDS ORDERED: FLAGYL500 MG PO (20:33)
== END 2017-07-03 21:59 | disposition home or self-care (01) ==
LOC: EME 18:13
PROVIDERS: Emergency Medicine
DX: N39.0 Urinary tract infection, site not specified (principal); R41.0 Disorientation, unspecified; R94.31 Abnormal electrocardiogram [ECG] [EKG]; I10 Essential (primary) hypertension; K21.9 Gastro-esophageal reflux disease without esophagitis; M54.9 Dorsalgia, unspecified; F41.9 Anxiety disorder, unspecified; F32.9 Major depressive disorder, single episode, unspecified; Z79.891 Long term (current) use of opiate analgesic; Z87.440 Personal history of urinary (tract) infections; Z85.9 Personal history of malignant neoplasm, unspecified; Z90.49 Acquired absence of other specified parts of digestive tract; Z98.41 Cataract extraction status, right eye
CPT/HCPCS: 70450; 80048; 81003; 84484; 85025; 85610; 85730; 87040; 87077; 87086 GA; 87186; 93005; 99281; 99285; J0696; J7030

== ENCOUNTER 2017-07-04 17:47 | Emergency (ER) | payer OTHER, MEDICARE ==
[~2017-07-04] VITALS: Ht 157.5 cm; Wt 55.8 kg
[~2017-07-04 17:47] MED LIST changes: +LEVAQUIN750 MG PO
[2017-07-04 18:37] LABS: HEMATOCRIT 35.9 % (36.0-46.0); HEMOGLOBIN 12.3 G/DL (11.9-15.5); MCH 31.1 PG (29.0-34.0); MCHC 34.3 G/DL (30.0-36.0); MCV 90.9 FL (83-99); PLATELET COUNT 180 K/uL (156-360); RBC DIS.WIDTH-SD 46.9 % (39-53); RED BLOOD COUNT 3.95 M/uL (3.80-5.20); WHITE BLOOD COUNT 11.2 K/uL (4.1-10.2)
[2017-07-04 18:49] LABS: ALBUMIN 3.6 g/dL (3.2-4.8); CHLORIDE 106 mEq/L (99-109)
[2017-07-04 18:50] LABS: POTASSIUM 4.3 mEq/L (3.7-5.4); SODIUM 141 mEq/L (136-147)
[2017-07-04 18:52] LABS: GLUCOSE 110 mg/dL (70-99); TOTAL PROTEIN 5.8 g/dL (6.4-8.3)
[2017-07-04 18:54] LABS: TOTAL BILIRUBIN 0.8 mg/dL (0.0-1.0)
[2017-07-04 18:55] LABS: ALKALINE PHOSPHATASE 120 IU/L (3-129); CREATININE 0.9 mg/dL (0.6-1.3); GFR ESTIMATE (CALCULATED) > 59 mL/min/
[2017-07-04 18:57] LABS: AST (GOT) 19 IU/L (2-34); UREA NITROGEN (BUN) 30 mg/dL (9-23)
[2017-07-04 18:58] LABS: ALT (GPT) 26 IU/L (3-49)
[2017-07-04] MEDS ORDERED: FLAGYL500 MG PO (20:33)
[2017-07-04 21:00] VITALS: BP 152/82
== END 2017-07-04 23:05 | disposition home or self-care (01) ==
LOC: EME 17:47
PROVIDERS: Nurse Practitioner Acute Care
DX: K52.9 Noninfective gastroenteritis and colitis, unspecified (principal); K21.9 Gastro-esophageal reflux disease without esophagitis; I10 Essential (primary) hypertension; F41.9 Anxiety disorder, unspecified; F32.9 Major depressive disorder, single episode, unspecified; Z87.440 Personal history of urinary (tract) infections; Z85.9 Personal history of malignant neoplasm, unspecified
CPT/HCPCS: 74177; 80053; 83605; 85027; 86850; 86900; 86901; 99281; 99285; J7030